=== PATIENT | female | born 1965 | race Caucasian/White ===

== ENCOUNTER → 2022-01-27 | Outpatient (CLI) | payer OTHER ==
[~2022-01-27] MED LIST: CREO24CA PO; HOME MED LIST COMPLETE! XX SCH; LIDOCAINE 1% MDV 20ML VIAL As Ordered ONE; MELA10CA PO
[2022-01-27 15:30] VITALS: BP 144/94
== END ==
LOC: M IRPRO 09:33
PROVIDERS: ATTEND Internal Medicine Hematology & Oncology
DX: C25.0 Malignant neoplasm of head of pancreas (principal); R74.8 Abnormal levels of other serum enzymes; C34.91 Malignant neoplasm of unspecified part of right bronchus or lung; J95.811 Postprocedural pneumothorax